=== PATIENT | female | born 1975 | race Two or more races ===

== ENCOUNTER 2023-06-18 23:39 | Emergency (ER) | payer OTHER ==
[~2023-06-18] VITALS: Ht 165.1 cm; Wt 72.5 kg
[2023-06-19 00:02] VITALS: O2SAT 100
[2023-06-19] MEDS ORDERED: KETOROLAC 15MG/ML VIAL IM ONE (02:30)
[2023-06-19] MEDS ORDERED: CYCLOBENZAPRINE 10MG TABLET PO ONE (02:30)
[2023-06-19] MEDS ORDERED: LIDO700A15 TP (02:39)
[2023-06-19] MEDS ORDERED: NAPR-1176 MT (02:39)
[2023-06-19 02:45] VITALS: BP 120/71; PULSE 74; RESP 16; TEMP 98
== END 2023-06-19 02:57 | disposition home or self-care (01) ==
LOC: ER 23:39
DX: M25.551 Pain in right hip (principal); M25.561 Pain in right knee; E11.9 Type 2 diabetes mellitus without complications; Z98.890 Other specified postprocedural states
CPT/HCPCS: 99283; 81025; 96372; J1885